=== PATIENT | female | born 1945 | race Caucasian/White ===

== ENCOUNTER 2021-01-16 00:34 | Observation (INO) | payer MEDICARE, BC ==
[2021-01-16 01:30] LABS: ALT (SGPT) 39 U/L (8-55); AST (SGOT) 42 U/L (5-34); Alkaline Phosphatase 79 U/L (40-110); Anion Gap 14 mmol/L (10-20); BUN (Urea Nitrogen) 16 mg/dL (9.8-20.1); Bilirubin, Total 0.5 mg/dL (0.2-1.2); CK (CPK) 80 U/L (29-168); Calc. Creatinine Clearance 0 mL/min (70-130); Calcium 8.9 mg/dL (7.8-10.44); Carbon Dioxide 21 mmol/L (23-31); Chloride 106 mmol/L (98-107); Globulin 3.5 g/dL (2.4-3.5); Glucose 119 mg/dL (83-110); Magnesium 2.1 mg/dL (1.6-2.6); Potassium 3.5 mmol/L (3.5-5.1); Protein, Total 7.5 g/dL (5.8-8.1); Sodium 137 mmol/L (136-145)
[2021-01-16 01:36] LABS: Hemoglobin 13.8 g/dL (12.0-15.5); Mean Corpuscular HGB CONC 32.9 g/dL (32.0-36.0); Mean Corpuscular Hemoglobin 30.5 pg (27.0-33.0); Mean Corpuscular Volume 92.7 fl (81.6-98.3); Mean Platelet Volume 10.6 fl (7.4-10.4); Platelet Count 224 10x3/uL (150-450); RBC Distribution Width 12.6 % (11.5-14.5); Red Blood Cell (RBC) Count 4.52 10x6/uL (3.90-5.03)
[2021-01-16 01:37] LABS: MDiff Complete? YES
[2021-01-16 01:46] LABS: Eosinophils 2 % (0-10); Lymphocytes 46 % (21-51); Monocytes 18 % (0-10); Neutrophil 32 % (42-75)
[2021-01-16 01:47] LABS: Platelet Morphology Comment Appears Adequate; RBC Morphology Normal
[2021-01-16] MEDS ORDERED: Ondansetron PF 4 MG/2 ML Vial IVP PRN (03:26)
[2021-01-16] MEDS ORDERED: Calcium Carbonate 500 MG ChewTAB PO PRN (03:26)
[2021-01-16] MEDS ORDERED: Guaifenesin DM 100-10/5 ML UDCUP PO PRN (03:26)
[2021-01-16] MEDS ORDERED: Zolpidem Tartrate 5 MG TAB PO PRN (03:26)
[2021-01-16] MEDS ORDERED: Acetaminophen 325 MG TAB PO PRN (03:26)
[2021-01-16] MEDS ORDERED: Senokot S 8.6-50 MG TAB PO PRN (03:26)
[2021-01-16] MEDS ORDERED: Lactated Ringer's 500 ML IV SCH (03:30)
[2021-01-16] MEDS ORDERED: Metoprolol Tartrate 25 MG TAB ONE (03:39)
[2021-01-16] MEDS ORDERED: Potassium Chloride 20 MEQ TAB PO SCH (03:45)
[2021-01-16 05:59] LABS: #Monocytes 0.4 10x3/uL (0.0-1.1); #Neutrophils 1.4 10x3/uL (1.5-8.4); %Basophils 1.1 % (0.0-2.0); %Eosinophils 0.8 % (0.0-6.0); %Lymphocytes 48.8 % (18.0-47.0); %Monocytes 10.2 % (0.0-10.0); %Neutrophils 38.8 % (40.0-75.0); Mean Corpuscular HGB CONC 32.9 g/dL (32.0-36.0); Mean Corpuscular Hemoglobin 30.5 pg (27.0-33.0); Mean Corpuscular Volume 92.8 fl (81.6-98.3); Mean Platelet Volume 10.4 fl (7.4-10.4); Platelet Count 232 10x3/uL (150-450); RBC Distribution Width 12.7 % (11.5-14.5); Red Blood Cell (RBC) Count 4.59 10x6/uL (3.90-5.03); White Blood Cell (WBC) Count 3.7 10x3/uL (3.5-10.5)
[2021-01-16] MEDS ORDERED: Levothyroxine Sodium 112 MCG TAB PO SCH (06:00)
[2021-01-16 07:43] LABS: Anion Gap 13 mmol/L (10-20); BUN (Urea Nitrogen) 13 mg/dL (9.8-20.1); Calc. Creatinine Clearance 0 mL/min (70-130); Carbon Dioxide 23 mmol/L (23-31); Chloride 107 mmol/L (98-107); Glucose 116 mg/dL (83-110); Potassium 3.5 mmol/L (3.5-5.1); Sodium 139 mmol/L (136-145)
[2021-01-16 07:46] VITALS: BMI 37.3
[2021-01-16 08:03] VITALS: BP 119/71; TEMP 98.4
[2021-01-16] MEDS ORDERED: Metoprolol Tartrate 50 MG TAB ONE (08:03)
[2021-01-16] MEDS ORDERED: Apixaban 5 MG TAB ONE (08:03)
[2021-01-16] MEDS ORDERED: Potassium Chloride 20 MEQ TAB ONE (08:04)
[2021-01-16] MEDS ORDERED: Apixaban 5 MG TAB PO SCH (09:00)
[2021-01-16 15:31] LABS: SARS-CoV-2 NAA Rapid Test Not Detected (NotDetected)
[2021-01-16] MEDS ORDERED: Dronedarone HCl 400 MG TAB PO SCH (18:00)
[2021-01-17] MEDS ORDERED: Dronedarone HCl 400 MG TAB PO SCH (09:00)
[2021-01-17] MEDS ORDERED: FLU VACC QS2021-22(65YR UP)/PF 240 MCG/0.7 ML SYRINGE IM ONE (15:30)
== END 2021-01-16 19:15 | disposition home or self-care (01) ==
LOC: CSHERS 00:34 → CSHERHOLD 00:35 → INTOOBSV 00:35 → CSHIMCU 14:13
PROVIDERS: ADMIT Student in an Organized Health Care Education/Training Program; ATTEND Nurse Practitioner Family
DX: I48.92 Unspecified atrial flutter (principal); I48.0 Paroxysmal atrial fibrillation; Z79.899 Other long term (current) drug therapy; Z79.01 Long term (current) use of anticoagulants; E86.0 Dehydration; I12.9 Hypertensive chronic kidney disease with stage 1 through stage 4 chronic kidney disease, or unspecified chronic kidney disease; N18.2 Chronic kidney disease, stage 2 (mild); E03.9 Hypothyroidism, unspecified; Z87.891 Personal history of nicotine dependence; J11.1 Influenza due to unidentified influenza virus with other respiratory manifestations; Z20.822 Contact with and (suspected) exposure to COVID-19
CPT/HCPCS: 71045; 80048; 82550; 83735; 84484 ×2; 93005; 93306; 99285; G0378 ×2; U0002; 36415; 80053; 84443; 85025; 93010; J7120

== ENCOUNTER 2023-02-15 17:35 | Observation (INO) | payer MEDICARE, BC ==
[2023-02-15] MEDS ORDERED: Metoprolol Tartrate 25 MG TAB ONE (18:23)
[2023-02-15 19:19] LABS: #Eosinphils 0.1 10x3/uL (0.0-0.5); #Monocytes 0.8 10x3/uL (0.0-1.1); #Neutrophils 3.1 10x3/uL (1.5-8.4); %Basophils 0.7 % (0.0-2.0); %Eosinophils 2.6 % (0.0-6.0); %Lymphocytes 23.6 % (18.0-47.0); %Monocytes 15.3 % (0.0-10.0); %Neutrophils 57.6 % (40.0-75.0); Hematocrit 42.9 % (34.9-44.5); Hemoglobin 14.4 g/dL (12.0-15.5); Mean Corpuscular HGB CONC 33.6 g/dL (32.0-36.0); Mean Corpuscular Hemoglobin 30.4 pg (27.0-33.0); Mean Corpuscular Volume 90.7 fl (81.6-98.3); Mean Platelet Volume 10.5 fl (7.4-10.4); Platelet Count 267 10x3/uL (150-450); RBC Distribution Width 12.6 % (11.5-14.5); Red Blood Cell (RBC) Count 4.73 10x6/uL (3.90-5.03); White Blood Cell (WBC) Count 5.4 10x3/uL (3.5-10.5)
[2023-02-15 19:20] LABS: ALT (SGPT) 19 U/L (8-55); AST (SGOT) 19 U/L (5-34); Alkaline Phosphatase 84 U/L (40-110); Anion Gap 14 mmol/L (10-20); BUN (Urea Nitrogen) 9 mg/dL (9.8-20.1); Bilirubin, Total 0.6 mg/dL (0.2-1.2); Calc. Creatinine Clearance 0 mL/min (70-130); Calcium 8.9 mg/dL (7.8-10.44); Carbon Dioxide 22 mmol/L (23-31); Chloride 104 mmol/L (98-107); Estimated GFR 73; Globulin 3.5 g/dL (2.4-3.5); Glucose 145 mg/dL (83-110); Potassium 3.6 mmol/L (3.5-5.1); Protein, Total 7.5 g/dL (5.8-8.1); Sodium 136 mmol/L (136-145); Troponin I Less than 0.010 ng/mL (< 0.028)
[2023-02-15 19:43] LABS: Bilirubin Neg (Negative); Blood, Urine 10 (Negative); Clarity Clear (Clear); Glucose, Urine (Dipstick) Normal (Negative); Ketone, Urine Negative (Negative); Leukocyte Negative (Negative); Nitrite Negative (Negative); Protein, Urine (Dipstick) 15 mg/dl (Neg-Trace); Urobilinogen Normal mg/dL (Less than 2); pH, Urine 6.5 (5.0-9.0)
[2023-02-15] MEDS ORDERED: Acetaminophen 650 MG Suppository PR PRN (20:08)
[2023-02-15] MEDS ORDERED: Bisacodyl 5 MG TAB PO PRN (20:08)
[2023-02-15] MEDS ORDERED: Senokot S 8.6-50 MG TAB PO PRN (20:08)
[2023-02-15] MEDS ORDERED: Acetaminophen 325 MG TAB PO PRN (20:08)
[2023-02-15] MEDS ORDERED: Calcium Carbonate 500 MG ChewTAB PO PRN (20:08)
[2023-02-15 20:09] LABS: Bacteria/HPF Rare-Few HPF (None Seen); CAUTI Indications for Culture Dysuria,urgency,freq; RBC/HPF 0-3 HPF (0-3); Squamous Epithelial 0-3 HPF (0-3); WBC/HPF 0-3 HPF (0-3)
[2023-02-15 20:10] LABS: Urine Culture Reflex No No
[2023-02-15] MEDS ORDERED: Electrolyte Replacement Protocol 1 EACH FS PRN (20:15)
[2023-02-15 20:34] LABS: Phosphorus 2.8 mg/dL (2.3-4.7)
[2023-02-15] MEDS: Apixaban 5 MG TAB PO SCH (22:53)
[2023-02-15 22:55] VITALS: BMI 36.7
[2023-02-15 23:22] LABS: SARS-CoV-2 NAA Rapid Test DETECTED (NotDetected)
[2023-02-15] MEDS ORDERED: FLU VACC QS2023(65UP)/MF59C/PF 60 MCG/0.5 ML SYRINGE IM ONE (23:30)
[2023-02-16] MEDS ORDERED: Benzonatate 100 MG CAP PO PRN (00:01)
[2023-02-16] MEDS: Metoprolol Tartrate 50 MG TAB PO SCH ×2 (01:47→09:51)
[2023-02-16 05:32] LABS: Anion Gap 13 mmol/L (10-20); BUN (Urea Nitrogen) 8 mg/dL (9.8-20.1); Calc. Creatinine Clearance 94 mL/min (70-130); Calcium 8.7 mg/dL (7.8-10.44); Carbon Dioxide 23 mmol/L (23-31); Chloride 107 mmol/L (98-107); Estimated GFR 79; Glucose 104 mg/dL (83-110); Potassium 3.8 mmol/L (3.5-5.1); Sodium 139 mmol/L (136-145)
[2023-02-16 05:48] LABS: Free T4 (Free Thyroxine) 1.13 ng/dL (0.70-1.48)
[2023-02-16] MEDS ORDERED: Levothyroxine Sodium 112 MCG TAB PO SCH (06:00)
[2023-02-16] MEDS ORDERED: Magnesium 2 GM/50 ML(in water) 2 GM in Premix 1 BAG IVPB SCH (09:00)
[2023-02-16] MEDS ORDERED: Ascorbic Acid 500 mg Chewable Tablet PO SCH (09:00)
[2023-02-16] MEDS ORDERED: Cholecalciferol (Vitamin D3) 400 UNITS TAB PO SCH (09:00)
[2023-02-16] MEDS ORDERED: Zinc Sulfate 220 MG CAP PO SCH (09:00)
[2023-02-16] MEDS ORDERED: Aspirin 81 mg Enteric Coated Tablet PO SCH (09:00)
[2023-02-16] MEDS: Apixaban 5 MG TAB PO SCH (09:50)
[2023-02-16 12:26] VITALS: TEMP 98.3
[2023-02-16 16:45] VITALS: BP 128/82
== END 2023-02-16 16:25 | disposition home or self-care (01) ==
LOC: CSHERS 17:35 → CSHERHOLD 19:44 → CSHTELE 22:26
PROVIDERS: ADMIT Family Medicine; ATTEND Nurse Practitioner Family
DX: I47.10 Supraventricular tachycardia, unspecified (principal); I48.0 Paroxysmal atrial fibrillation; U07.1 COVID-19; E83.42 Hypomagnesemia; I10 Essential (primary) hypertension; E03.9 Hypothyroidism, unspecified; Z79.890 Hormone replacement therapy; Z79.82 Long term (current) use of aspirin; Z79.899 Other long term (current) drug therapy; Z98.890 Other specified postprocedural states; Z87.891 Personal history of nicotine dependence; Z79.01 Long term (current) use of anticoagulants
CPT/HCPCS: 0241U; 71045; 80048; 81001; 83735; 83880; 84100; 84439; 84481; 84484; 96374; 99285; G0378 ×3; 36415; 80053; 84443; 85025; 93005; 93010; J3475

== ENCOUNTER 2024-12-12 18:05 | Emergency (ER) | payer MEDICARE ==
[2024-12-12 19:39] LABS: Glucose, Urine (Dipstick) Normal (Negative); Leukocyte 25 (Negative); Protein, Urine (Dipstick) 30 mg/dl (Neg-Trace); Specific Gravity, Urine 1.020 (1.005-1.030)
[2024-12-12 19:59] LABS: Bacteria/HPF 4+ HPF (None Seen); CAUTI Indications for Culture Dysuria,urgency,freq; RBC/HPF 0-3 HPF (0-3); Urine Culture Reflex No No
[2024-12-12 20:01] LABS: #Basophils Less than 0.03 10x3/uL (0.0-0.2); #Eosinophils Less than 0.03 10x3/uL (0.0-0.5); #Monocytes 0.43 10x3/uL (0.0-1.1); #Neutrophils 10.12 10x3/uL (1.5-8.4); %Basophils 0.2 % (0.0-2.0); %Eosinophils 0.2 % (0.0-6.0); %Lymphocytes 6.2 % (18.0-47.0); %Monocytes 3.8 % (0.0-10.0); %Neutrophils 89.3 % (40.0-75.0); Hematocrit 39.5 % (34.9-44.5); Hemoglobin 13.0 g/dL (12.0-15.5); Mean Corpuscular Hemoglobin 28.0 pg (27.0-33.0); Mean Corpuscular Volume 84.9 fL (81.6-98.3); Platelet Count 379 10x3/uL (150-450); Red Blood Cell (RBC) Count 4.65 10x6/uL (3.90-5.03); White Blood Cell (WBC) Count 11.32 10x3/uL (3.5-10.5)
[2024-12-12 20:15] LABS: ALT (SGPT) 14 U/L (Less than 34); AST (SGOT) 22 U/L (11-34); Albumin 4.1 g/dL (3.1-4.5); Alkaline Phosphatase 93 U/L (40-110); Anion Gap 14 mmol/L (10-20); BUN (Urea Nitrogen) 13 mg/dL (9.8-20.1); Bilirubin, Total 0.7 mg/dL (0.3-1.2); Calc. Creatinine Clearance 0 mL/min (70-130); Calcium 9.5 mg/dL (7.8-10.44); Carbon Dioxide 22 mmol/L (23-31); Chloride 106 mmol/L (98-107); Globulin 3.7 g/dL (2.4-3.5); Glucose 130 mg/dL (83-110); Potassium 3.9 mmol/L (3.5-5.1); Sodium 138 mmol/L (136-145)
== END 2024-12-12 21:16 | disposition home or self-care (01) ==
LOC: CSHERS 18:05
DX: R11.2 Nausea with vomiting, unspecified (principal); R19.7 Diarrhea, unspecified; I10 Essential (primary) hypertension; I48.91 Unspecified atrial fibrillation; Z55.6 Problems related to health literacy
CPT/HCPCS: 80053; 81001; 85025; 87077; 87086; 87186; 99284; Q0162; 36415